=== PATIENT | female | born 1960 | race Caucasian/White ===

== ENCOUNTER 2019-06-26 10:35 | Outpatient (CLI) | payer OTHER, SELFPAY ==
--- NOTE | ~2019-06-26 | XR_ITS ---
XR toe 5th LT min 2V DATE: 06/26/2019 10:51 INDICATION: New injury to left fifth toe TECHNIQUE: 4 views COMPARISON: 03/15/2017 left fourth toe FINDINGS: There is a linear oblique fracture through the distal shaft of the proximal phalanx of the fifth toe, with approximately 2 cortical widths lateral displacement, mild apex medial angulation. No other fracture or dislocation. IMPRESSION: Fracture proximal phalange of fifth toe Reviewed, dictated and finalized at location A.
== END 2019-06-26 10:36 | disposition home or self-care (01) ==
LOC: ANHIMG 10:41
PROVIDERS: PCP Family Medicine; Visit Provider Family Medicine
DX: S93.105A Unspecified dislocation of left toe(s), initial encounter (principal); S92.512A Displaced fracture of proximal phalanx of left lesser toe(s), initial encounter for closed fracture
CPT/HCPCS: 73660

== ENCOUNTER 2019-07-26 14:37 | Outpatient (CLI) | payer OTHER, SELFPAY ==
--- NOTE | ~2019-07-26 | XR_ITS ---
EXAMINATION: XR toe 5th LT min 2V INDICATION: Left fifth toe fracture follow-up TECHNIQUE: Four views of the left fifth toe are obtained. COMPARISON: 06/26/2019 FINDINGS: Again seen is an oblique shaft fracture of the fifth proximal phalanx. There are approximat deja 2 mm of stable lateral displacement of the distal fracture fragment. Surrounding soft tissue swel ling persists. There are 10 degrees of unchanged lateral angulation at the fracture site. The joint s paces are normal. No additional acute osseous findings are evident. No definite healing reaction is i dentified. IMPRESSION: 1. Fifth proximal phalanx shaft fracture without significant change. Reviewed, dictated and finalized at location A.
== END 2019-07-26 14:38 | disposition home or self-care (01) ==
PROVIDERS: PCP Family Medicine; Visit Provider Family Medicine
DX: S92.912A Unspecified fracture of left toe(s), initial encounter for closed fracture (principal)
CPT/HCPCS: 73660

== ENCOUNTER → 2019-10-05 11:36 | Outpatient (CLI) | payer OTHER, SELFPAY ==
--- NOTE | ~2019-10-05 | MM_ITS ---
EXAMINATION: MM screening [facility] w [facility] HISTORY: Screening mammogram TECHNIQUE: Craniocaudal and mediolateral oblique 3-D tomosynthesis images were obtained and synthetic 2-D images were generated. CAD analysis was submitted and interpreted. COMPARISON: 04/21/2018 bilateral digital screening mammogram 04/06/2017 diagnostic right digital mammogram 04/06/2017 limited right breast ultrasound 04/02/2017, 12/25/2015 bilateral digital screening mammogram examinations BREAST PARENCHYMAL COMPOSITION: There are scattered areas of fibroglandular density. FINDINGS: There is no evidence of suspicious mass, calcification, or architectural distortion to sugg est malignancy in either breast. There has been no suspicious interval change. IMPRESSION: 1. No mammographic evidence of malignancy. 2. Recommend routine screening mammography in one year. BI-RADS Category 1: Negative Reviewed, dictated and finalized at location A.
== END ==
PROVIDERS: Visit Provider Obstetrics & Gynecology Gynecology
DX: Z12.31 Encounter for screening mammogram for malignant neoplasm of breast (principal)
CPT/HCPCS: 77063; 77067

== ENCOUNTER → 2020-11-18 12:25 | Outpatient (CLI) | payer BC, SELFPAY ==
--- NOTE | ~2020-11-18 | DEXA_ITS ---
Bone Density Report Name: Jaqueline Cook Age: 60 Sex: Female Ethnicity: White Date of : 1960 Indication: monitoring treatment; postmenopausal Referring Provider: SHARONA LANGE Study: Bone densitometry was performed. Exam Date: November 18, 2020 Accession number: [id number] Bone Density: Region BMD T-score Z-score Classification AP Spine (L1, L2, L3) 1.019 0.0 1.5 Normal Femoral Neck (Left) 0.760 -0.8 0.5 Normal Total Hip (Left) 0.831 -0.9 0.1 Normal Femoral Neck (Right) 0.757 -0.8 0.5 Normal Total Hip (Right) 0.816 -1.0 0.0 Normal Total Hip Mean 0.824 -1.0 0.1 Normal World Health Organization criteria for BMD impression classify patients as: Normal (T-score at or above -1.0), Osteopenia (T-score between -1.0 and -2.5), or Osteoporosis (T-score at or below -2.5). 10-year Fracture Risk: FRAX not reported because: All T-scores for Spine Total, Hip Total, Femoral Neck at or above -1.0 Treated for osteoporosis Previous Exams: Region Exam Age BMD T-score BMD Change BMD Change Date g/cm2 vs Baseline vs Previous AP Spine(L1, L2, L3) 11/18/2020 60 1.019 0.0 0.002 0.041 04/05/2017 56 0.978 -0.4 -0.039* -0.039* 12/28/2012 52 1.017 0.0 Total Hip(Left) 11/18/2020 60 0.831 -0.9 -0.079 -0.032 04/05/2017 56 0.862 -0.7 -0.047* -0.047* 12/28/2012 52 0.909 -0.3 Total Hip(Right) 11/18/2020 60 0.816 -1.0 -0.086 -0.014 04/05/2017 56 0.830 -0.9 -0.072* -0.072* 12/28/2012 52 0.902 -0.3 *Denotes significance at 95% confidence level, LSC for AP Spine = 0.022 g/cm2, LSC for Total Hip = 0.027 g/cm2 Clinical Information Provided by Patient: Is being treated for osteoporosis Has used the following medications: HRT (i.e. estrogen/hormone therapy), Vitamin D, Calcium Patient maximum height was 66.0 Menopause Age: 52 No regular weight bearing exercise Does not regularly consume dairy products Drinks caffeinated beverages Onset of menses at age 11 Number of children 4 Impression: The patient has normal bone mass. No significant bone loss was observed. Discussion: PATIENT UNDER TREATMENT WITH NO SIGNIFICANT BMD LOSS SINCE LAST EXAM. In an untreated patient, BMD typically declines with age. A lack of decline or gain is usually a sign that treatment is efficacious and fracture risk is reduced. It is important to
== END ==
PROVIDERS: PCP Family Medicine; Visit Provider Obstetrics & Gynecology Gynecology
DX: Z78.0 Asymptomatic menopausal state (principal)
CPT/HCPCS: 77080

== ENCOUNTER → 2020-11-25 13:55 | Outpatient (CLI) | payer BC, SELFPAY ==
--- NOTE | ~2020-11-25 | MM_ITS ---
EXAMINATION: MM screening [facility] BI w trung HISTORY: Screening mammogram TECHNIQUE: Craniocaudal and mediolateral oblique 3-D tomosynthesis images were obtained and synthetic 2-D images were generated. CAD analysis was submitted and interpreted. COMPARISON: 10/05/2019, 04/21/2018, 04/06/2017, 04/02/2017 BREAST PARENCHYMAL COMPOSITION: There are scattered areas of fibroglandular density. FINDINGS: There is no evidence of suspicious mass, calcification, or architectural distortion to sugg est malignancy in either breast. There has been no suspicious interval change. IMPRESSION: 1. No mammographic evidence of malignancy. 2. Recommend routine screening mammography in one year. BI-RADS Category 1: Negative Reviewed, dictated and finalized at location A.
== END ==
PROVIDERS: PCP Family Medicine; Visit Provider Obstetrics & Gynecology Gynecology
DX: Z12.31 Encounter for screening mammogram for malignant neoplasm of breast (principal)
CPT/HCPCS: 77063; 77067

== ENCOUNTER → 2022-08-31 12:34 | Outpatient (CLI) | payer BC, SELFPAY ==
--- NOTE | ~2022-08-31 | MM_ITS ---
EXAMINATION: MM screening [facility] w [facility] HISTORY: Screening mammogram TECHNIQUE: Craniocaudal and mediolateral oblique 3-D tomosynthesis images were obtained and synthetic 2-D images were generated. CAD analysis was submitted and interpreted. COMPARISON: 11/25/2020, 10/05/2019, 04/11/2018 bilateral screening mammogram examinations BREAST PARENCHYMAL COMPOSITION: There are scattered areas of fibroglandular density. FINDINGS: There is no evidence of suspicious mass, calcification, or architectural distortion to sugg est malignancy in either breast. There has been no suspicious interval change. IMPRESSION: 1. No mammographic evidence of malignancy. 2. Recommend routine screening mammography in one year. BI-RADS Category 1: Negative Reviewed, dictated and finalized at location A.
== END ==
PROVIDERS: PCP Obstetrics & Gynecology Gynecology; Visit Provider Obstetrics & Gynecology Gynecology
DX: Z12.31 Encounter for screening mammogram for malignant neoplasm of breast (principal)
CPT/HCPCS: 77063; 77067

== ENCOUNTER → 2023-03-14 10:19 | Outpatient (CLI) | payer BC, SELFPAY ==
--- NOTE | ~2023-03-14 | US_ITS ---
EXAMINATION: US soft tissue head and neck DATE: 03/14/2023 10:34 INDICATION: Localized swelling, mass and lump, right neck. TECHNIQUE: Multiple grayscale and Doppler ultrasound images of the head and neck were obtained. COMPARISON: None FINDINGS: There is a mildly enlarged lymph node in right neck measuring 4.0 x 1.2 x 3.9 cm. IMPRESSION: 1. Mildly enlarged lymph node in right neck. The differential diagnosis includes reactive lymphadenop athy, lymphoma, and less likely metastatic squamous cell carcinoma. Neck CT with contrast is recommen ded. Reviewed, dictated and finalized at location A. [employer] IMPRESSION: 1. Mildly enlarged lymph node in right neck. The differential diagnosis include s reactive lymphadenopathy, lymphoma, and less likely metastatic squamous cell carcinoma. Neck CT with contrast is recommended.
== END ==
DX: R22.1 Localized swelling, mass and lump, neck (principal)
CPT/HCPCS: 76536

== ENCOUNTER 2024-01-24 09:16 | Outpatient (CLI) | payer BC, SELFPAY ==
--- NOTE | ~2024-01-24 | DEXA_ITS ---
Bone Density Report Name: BHARATHI VAUGHN Age: 63 Sex: Female Ethnicity: White Date of : 1960 Indication: postmenopausal; screening for osteoporosis; cancer; Referring Provider: SHARONA LANGE Study: Bone densitometry was performed. Exam Date: January 24, 2024 Accession number: [id number] Bone Density: Region BMD T-score Z-score Classification AP Spine(L1-L4) 1.082 0.3 2.1 Normal Femoral Neck (Left) 0.746 -0.9 0.6 Normal Total Hip (Left) 0.859 -0.7 0.5 Normal Femoral Neck (Right) 0.770 -0.7 0.8 Normal Total Hip (Right) 0.847 -0.8 0.4 Normal Total Hip Mean 0.853 -0.8 0.5 Normal World Health Organization criteria for BMD impression classify patients as: Normal (T-score at or above -1.0), Osteopenia (T-score between -1.0 and -2.5), or Osteoporosis (T-score at or below -2.5). 10-year Fracture Risk: FRAX not reported because: All T-scores for Spine Total, Hip Total, Femoral Neck at or above -1.0 Clinical Information Provided by Patient: Has used the following medications: HRT (i.e. estrogen/hormone therapy), Vitamin D, Calcium Has the following medical conditions: Cancer Patient maximum height was 66 No regular weight bearing exercise Does not regularly consume dairy products Onset of menses at age 11 Number of children 4 Impression: The patient has normal bone mass. Discussion: BONE DENSITY IS ABOVE THE MINIMUM DESIRABLE LEVEL AT ALL SKELETAL SITES TESTED. This patient?s bone mineral density is above the minimum desirable level (T-score -1.0 or better) at all sites measured. The patient should follow a healthful lifestyle (good nutrition with adequate calcium and vitamin D, and appropriate weight-bearing exercise). Follow-Up: Consider repeating this study in 5 years or sooner if there is some new clinical indication. Reported by: AMANDA on 01/24/2024 10:11:00 AM. Reviewed, dictated and finalized at location ALeonides [facility]
== END 2024-01-24 09:17 | disposition home or self-care (01) ==
PROVIDERS: Visit Provider Obstetrics & Gynecology Gynecology
DX: Z78.0 Asymptomatic menopausal state (principal)
CPT/HCPCS: 77080